=== PATIENT | female | born 1955 | race Caucasian/White ===

== ENCOUNTER 2025-01-07 17:30 | Emergency (ER) | payer OTHER ==
[2025-01-07] MEDS ORDERED: NA CHLORIDE 0.9% 1,000 ML ONE (18:10)
[2025-01-07 18:12] LABS: Absolute Eosinophils 0.1 K/uL (0-0.5); Absolute Lymphocytes (CBC) 2.7 K/uL (0.7-4.9); Absolute Monocytes 0.6 K/uL (0.1-1.3); Absolute Neutrophil 5.3 K/uL (1.8-8.0); Basophils % 0.5 % (0-1.3); Eosinophils % 0.7 % (0-4.4); Hematocrit 43.2 % (36.0-45.0); Lymphocytes % 30.9 % (15.3-44.8); MCH 31.7 pg (27.0-35.0); MCHC 34.8 g/dL (32.0-36.0); MCV 90.9 fL (80-100); MPV 7.5 fL (7.6-11.3); Monocytes % 6.8 % (3.3-12.3); Neutrophils % 61.1 % (41.7-73.7); Platelets 342 thou/uL (152-406); RBC Red Blood Cell Count 4.75 M/uL (3.86-4.86); Red Cell Distribution Width 13.4 % (12.1-15.2)
[2025-01-07 18:50] LABS: Albumin/Globulin Ratio 1.2 (1.1-1.8); Anion Gap 10.8 mEq/L (5.0-15.0); Bilirubin Total 0.4 mg/dL (0.2-1.0); Globulin 3.4 g/dL (2.3-3.5); Potassium 3.8 mEq/L (3.5-5.1); Protein, Total 7.4 g/dL (6.4-8.2)
[2025-01-07 19:13] LABS: Specific Gravity < 1.005 (1.005-1.030); Sqamous Epithelial None Seen /HPF (None Seen); Urine Bacteria None Seen /HPF (<20); Urine Bilirubin NEGATIVE (Negative); Urine Blood 2+ (Negative); Urine Clarity Clear (Clear); Urine Color Colorless (Yellow); Urine Culture Reflex Order NOT NEEDED; Urine Glucose NEGATIVE (Negative); Urine Ketones NEGATIVE (Negative); Urine Microscopic Reflex YN ORDER UMIC; Urine Nitrite NEGATIVE (Negative); Urine Protein NEGATIVE (Negative); Urine RBC <5 /HPF (None Seen); Urine Urobilinogen Normal (Normal); Urine WBC <5 /HPF (<5); Urine Yeast (Budding) Trace /HPF (None Seen)
[2025-01-07] MEDS ORDERED: CEFTRIAXONE 1000 MG/VIAL ONE (19:53)
[2025-01-07] MEDS ORDERED: NA CHLORIDE 0.9% 50 ML ONE (19:53)
[2025-01-07 19:55] LABS: Troponin High Sensitivity 8.5 pg/mL (<58.9)
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
[2025-01-07 21:38] VITALS: TEMP 98
[2025-01-07 21:41] VITALS: O2SAT 100
[2025-01-07 21:47] VITALS: BP 121/78
--- NOTE | 2025-01-10 12:26 | EKG ---
Test Date: 2025-01-07 Test Time: 18:24:44 Leather Finisher: FARRUKH MEASUREMENT RESULTS: Intervals: Rate: 93 MD: 186 QRSD: 84 QT: 366 QTc: 455 [place]: P: 54 MD: 186 QRS: -53 T: 34 INTERPRETIVE STATEMENTS: Normal sinus rhythm Left anterior fascicular block Possible Anterior infarct, age undetermined Abnormal ECG No previous ECG available for comparison Electronically Signed On 01-10-25 12:20:20 CDT by Rashel Lara
== END 2025-01-07 20:58 | disposition home or self-care (01) ==
LOC: ER 17:30
DX: S29.012A Strain of muscle and tendon of back wall of thorax, initial encounter (principal); S29.011A Strain of muscle and tendon of front wall of thorax, initial encounter; J98.59 Other diseases of mediastinum, not elsewhere classified; V49.59XA Passenger injured in collision with other motor vehicles in traffic accident, initial encounter; I10 Essential (primary) hypertension
CPT/HCPCS: 96365; 96361; 93005; 85025; 81001; 36415; 84484; 80053; 70450; 71250; 72125; 74176; 99285; J7030; J0696